=== PATIENT | female | born 1975 | race Caucasian/White ===

== ENCOUNTER 2018-08-22 03:05 | Emergency (ER) | payer OTHER ==
[~2018-08-22] VITALS: Ht 162.6 cm; Wt 63.5 kg
[~2018-08-22 03:05] MED LIST: HYDROCODONE-AP1 EAC6 PO; HYDROCODONE-APA1 TA1 PO; IBUPROFEN 200200 M1 PO; IBUPROFEN 800800 M1 PO; IBUPROFEN 800800 MG PO; TRAMADOL 50 MG50 MG PO
[2018-08-22 03:10] VITALS: BP 129/92
[2018-08-22 03:22] LABS: SQUAMOUS 0-3 Few /LPF (0-3); URINE BILIRUBIN NEGATIVE (Negative); URINE BLOOD 3+ (Negative); URINE CLARITY CLOUDY; URINE COLOR YELLOW; URINE GLUCOSE-RANDOM NEGATIVE (Negative); URINE KETONES NEGATIVE (Negative); URINE LEUKOCYTES-REFLEX 3+ (Negative); URINE NITRITE-REFLEX POSITIVE (Negative); URINE PROTEIN 2+ (Negative); URINE SPECIFIC GRAVITY >= 1.030 (1.005-1.030); URINE UROBILINOGEN 0.2 E.U./dl (0.2-1.0); URINE WBC-REFLEX >25 Many /HPF (0-5); WBC CLUMPS Few (None Seen)
[2018-08-22 03:23] LABS: BACTERIA-REFLEX >30 Many /HPF (None Seen); CRYSTALS None Seen /LPF (None Seen); MUCUS 0-3 Light strn/LPF (None Seen); URINE RBC >20 Many /HPF (0-2)
[2018-08-22] MEDS ORDERED: PYRIDIUM200 M2 PO (03:28)
[2018-08-22] MEDS ORDERED: CIPROFLOXACIN500 M1 PO (03:28)
[2018-08-22 03:34] LABS: CASTS None Seen /LPF (None Seen)
== END 2018-08-22 03:32 | disposition home or self-care (01) ==
LOC: M.ERS 03:05
PROVIDERS: Personal Emergency Response Attendant
DX: N39.0 Urinary tract infection, site not specified (principal); Z90.49 Acquired absence of other specified parts of digestive tract